=== PATIENT | female | born 1985 | race Caucasian/White ===

== ENCOUNTER 2017-11-09 20:23 | Emergency (ER) | payer SELFPAY ==
[~2017-11-09] VITALS: Ht 177.8 cm; Wt 58.1 kg
[2017-11-09] MEDS ORDERED: OXYCODONE/APAP 5-325 MG TABLET PO ONE (20:45)
[2017-11-09] MEDS ORDERED: SULFAMETH/TRIMETH 800/160 MG TABLET PO ONE (20:45)
--- NOTE | 2017-11-09 20:58 | NUR ---
Patient discharged to home in stable conditon. Written and verbal after care instructions given. Patient verbalizes understanding of instructions.
[2017-11-09] MEDS ORDERED: SULFAMETH/TRIMETH 800/160 MG TABLET ONE (21:09)
[2017-11-09] MEDS ORDERED: HYDROCODONE/APAP 5-325MG TABLET ONE (21:09)
== END 2017-11-09 20:59 | disposition home or self-care (01) ==
LOC: ER 20:25
DX: N71.9 Inflammatory disease of uterus, unspecified (principal); N89.8 Other specified noninflammatory disorders of vagina; K59.00 Constipation, unspecified; F17.200 Nicotine dependence, unspecified, uncomplicated
CPT/HCPCS: 87210; A4663